=== PATIENT | male | born 1950 | race Caucasian/White ===

== ENCOUNTER 2025-04-29 13:10 | Inpatient (IN) | payer MEDICARE, OTHER ==
[~2025-04-29] VITALS: Ht 208.3 cm; Wt 77.3 kg
--- NOTE | 2025-04-29 14:24 | Physician Documentation ---
History of Present Illness General Chief Complaint: Mechanical Fall Stated Complaint: R HIP PAIN FALL ON THINNERS NO HEAD STRIKE Time Seen by MD: 14:02 Primary Medical Doctor: DR. PARIS History of Present Illness Initial Comments A 75-year-old male with PMH of bilateral DVT, chest tube placement secondary to spontaneous pneumothorax which was recurrent with a period of 8-12 months presented to the ED in view of extreme right lower extremity pain in the hip region. Patient was walking, tripped and fell over a his Od: At about 11:30 a.m. today. Patient denies presyncopal symptoms like dizziness, chest pain, palpitations, lightheadedness, sweating prior to the fall. Patient denies loss of consciousness, rhythmic contractions of the body, involuntary bowel bladder movements during her post the episode. On further evaluation in the ED, patient has a right femoral neck fracture. Dr. 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 Medication Reconciliation Allergies: Coded Allergies: amoxicillin (Verified Allergy, Intermediate, 04/29/25) Uncoded Allergies: GENTAMYACIN (Allergy, Intermediate, 03/24/17) Past Medical History Other Past Medical History: HTN DVT bilateral lower extremities Chest tube placement status post spontaneous pneumothorax-recurrent/two episodes within a period of 8-12 months Other Past Surgical History: Bilateral laparoscopic hernia repair Laparoscopic cholecystectomy Vasec Additional Comment Denies smoking cigarettes Consumes alcohol occasionally-beer once in a year No marijuana or illicit drug use Lives at home with Physical Exam Physical Exam Vital Signs: Temperature: 98.1, Source: Temporal, Heart Rate: 67, Respiratory Rate: 16, BP: 180/89, Pulse Oximetry: 100, Weight: 77.270 Oxygen Flow Rate: 0 Physical Exam General: Alert, awake, oriented, not in acute distress HEENT: PERRLA, no icterus, pallor, lymphadenopathy, carotid bruit Respiratory system: Bilateral vesicular breath sounds heard, no adventitious breath sounds CVS: S1-S2 heard, no murmurs/rubs/gallop GI: Soft, nontender, no organomegaly, no guarding/rigidity, bowel sounds present Neuro: Could not be performed as the patient is in extreme pain with right hip region Extremities: Pain and tenderness in the right hip region Skin: Warm and dry Progress Results/Orders Results/Orders Orders - ULISSES AVILEZ, RES Cbc/Diff (04/29/25 14:09) CMP (04/29/25 14:09) Chest,Single View (04/29/25 14:09) Ekg Pre Op (04/29/25 ) Completed Orders - ULISSES AVILEZ, ROSANNE Hydrocodone/Apap 5/325mg Tab ([place] 5/32 (04/29/25 14:10) Morphine 2mg/Ml Inj. (Morphine Inj.) (04/29/25 14:10) Chest,Single View (04/29/25 14:09) Medications Received in ER Medications (Trade) Dose Ordered Sig/Kim Route PRN Reason Start Time Stop Time Status Last Admin Dose Admin ([place] 5/325mg tablet) 1 tab ONCE ONCE PO 04/29/25 14:10 04/29/25 14:11 DC 04/29/25 14:49 1 TAB (morphine inj.) 2 mg ONCE ONCE IV 04/29/25 14:10 04/29/25 14:22 DC 04/29/25 14:49 2 MG Vital Signs 04/29/25 13:25 Temp 98.1 Pulse 67 Resp 16 B/P (MAP) 180/89 Pulse Ox 100 O2 Flow Rate 0 Laboratory Tests Test 04/29/25 14:33 CBC Comment Chemistry Comments Medical Decision Making Additional information obtaine: N/A Findings Right hip fracture-femoral neck Differential Diagnosis Mechanical fall, right femoral neck fracture, rule out imbalance Departure Impression: Primary Impression: Fall Qualified Codes: W19.XXXA - Unspecified fall, initial encounter Additional Impression: Fracture of femur Qualified Codes: S72.001A - Fracture of unspecified part of neck of right femur, initial encounter for closed fracture Referrals: NO PRIMARY CARE PROVIDER (PCP) Signature Scribe Signature: None Attestation: Document returned by the resident, reviewed and attested by ULISSES Cruz, ROSANNE Apr 29, 2025 14:24
--- NOTE | 2025-04-29 14:31 | RADIOLOGY REPORT ---
CHEST RADIOGRAPH Indication: pre op Technique: DI CHEST,SINGLE VIEW Comparison: None FINDINGS: The cardiac silhouette is unremarkable. The lungs demonstrate no pulmonary airspace consolidation. The pulmonary vasculature is unremarkable. There is no pleural effusion. There is no pneumothorax. Proximal left humeral bone infarct. IMPRESSION: No pulmonary airspace consolidation.
--- NOTE | 2025-04-29 14:36 | RADIOLOGY REPORT ---
Right HIP RADIOGRAPH. CLINICAL INDICATION: fall TECHNIQUE: 3 views of the right hip were obtained. FINDINGS: minimally displaced RIGHT femoral neck fracture IMPRESSION: 1. minimally displaced RIGHT femoral neck fracture
[2025-04-29] MEDS: HYDROcodone/acetaminophen 5mg/325mg tablet PO ONE (14:49)
[2025-04-29 14:55] LABS: MEAN PLATELET VOLUME 8.0 FL (7.4-10.4); RED CELL DISTRIBUTION WIDTH 13.3 % (11.5-14.5)
[2025-04-29] MEDS: normal saline 1000ml 1,000 ML IV ONE ×2 (15:08→15:12)
[2025-04-29 15:17] LABS: CREATININE 0.72 MG/DL (0.60-1.10); TOTAL CARBON DIOXIDE 30.8 MMOL/L (24-32); eCRCL 94 ML/MIN; eGFR > 90 ML/MIN
[2025-04-29] MEDS ORDERED: APIX5TAB3 PO (15:21)
[2025-04-29] MEDS ORDERED: LOVA20TA2 PO (15:21)
[2025-04-29] MEDS ORDERED: IPRA30SP BOTHNARES (15:21)
[2025-04-29] MEDS ORDERED: LISI40TA20 PO (15:21)
[2025-04-29] MEDS ORDERED: HYDROcodone/acetaminophen 5mg/325mg tablet PO PRN (15:50)
[2025-04-29] MEDS ORDERED: magnesium sulf-water 4G/100mL 100 ML IV PRN (15:50)
[2025-04-29] MEDS ORDERED: ondansetron/PF 4mg/2ml inj IV PRN (15:50)
[2025-04-29] MEDS ORDERED: bisacodyl 10mg suppository rectal RC PRN (15:50)
[2025-04-29] MEDS ORDERED: potassium Cl 40MEQ/1/2NS 520ml 520 ML IV PRN (15:50)
[2025-04-29] MEDS ORDERED: magnesium sulf-water 2g/50mL 50 ML IV PRN (15:50)
[2025-04-29] MEDS ORDERED: potassium Cl 20 mEq SR tablet PO PRN ×2 (15:50)
[2025-04-29] MEDS ORDERED: magnesium hydroxide 30ml (MOM) UD suspension PO PRN (15:50)
[2025-04-29] MEDS ORDERED: magnesium Cl slow-release 64mg tablet PO PRN (15:50)
[2025-04-29 16:14] LABS: INR 1.1 INR
[2025-04-29] MEDS: heparin, porcine 5000 units/ml vial SQ SCH (16:20)
--- NOTE | 2025-04-29 18:54 | CONSULTATION REPORT ---
History of Present Illness Providers to CC ~ Reason for Admit\Admit Dx: Right hip fracture Refering MD: Dr Paulino History of Present Illness A 75-year-old male with PMH of bilateral DVT, chest tube placement secondary to spontaneous pneumothorax which was recurrent with a period of 8-12 months presented to the ED in view of extreme right lower extremity pain in the hip region. The patient was unable to bear weight Patient was walking, tripped and fell . He denies syncopal episode. Had no complaints of hip pain prior to this fall the patient denies any prior injuries to the hip. Allergies: Coded Allergies: amoxicillin (Verified Allergy, Intermediate, 04/29/25) Uncoded Allergies: GENTAMYACIN (Allergy, Intermediate, 03/24/17) Home Medications Home Medications Active Reported Atrovent Nasal [place]* (Ipratropium [place]) 21 Mcg (0.03 %) [place] BOTH[place]ARES Mevacor* (Lovastatin) 20 Mg Tablet 1 Tab PO DAILY Lisinopril* (Lisinopril) 40 Mg Tablet 1 Tab PO DAILY Eliquis (Apixaban) 5 Mg Tablet 1 Tab PO BID Physical Exam Last Vital Signs Recorded: Temperature: 98.1, Source: Temporal, Heart Rate: 80, Respiratory Rate: 18, BP: 130/67, Pulse Oximetry: 97, Weight: 77.270 Extremities No obvious external rotation or shortening of the hip. There was some tenderness at the right groin area. The skin is intact. Pelvis is stable and nontender. The thigh knee leg and ankle are nontender and distal pulses are intact. Results Results/Orders Results/Orders X-rays showed appears to be a valgus impacted femoral neck fracture. There was some question as to whether this is acute as there appears to be some evidence of bone reaction Diagram Lab Result Diagram: 04/29/25 1433 04/29/25 1433 Assessment/Plan Problems/Diagnosis: (1) Fracture of femoral neck, right Additional Plan This will respond well to percutaneous pin fixation. This will be scheduled over the next 24 hours once the patient is medically stabilized. Thank you for this consultation. Problem Qualifiers (1) Fracture of femoral neck, right: Qualified Codes: S72.001A - Fracture of unspecified part of neck of right femur, initial encounter for closed fracture DARRELL BREWSTER Jr., MD Apr 29, 2025 18:54
[2025-04-29] MEDS: K and/or MAG REPLACEMENT MC SCH (19:51)
--- NOTE | 2025-04-29 20:20 | HISTORY AND PHYSICAL ---
History & Physical Providers to CC ~ History of Present Illness Reason for Admit\Complaint: Mechanical Fall History of Present Illness Patient is 75-year-old male with past medical history of right lower extremity DVT, hypertension, hyperlipidemia history of spontaneous pneumothorax presented to ER with his after he had mechanical fall around 11:30 a.m. today. He was checking the sensor system in his house and was walking backwards and tripped due to construction cone today. Patient is currently on Eliquis due to right lower extremity DVT. Patient denies presyncopal symptoms like dizziness, chest pain, palpitations, lightheadedness, sweating prior to the fall. Patient denies loss of consciousness, rhythmic contractions of the body, involuntary bowel bladder movements during her post the episode. As per patient this is his 1st fall and he does not have any gait imbalance issues. Patient drinks occasionally , no tobacco or use of any recreational drugs.On further evaluation in the ED, patient has a right femoral neck fracture. Dr. Leong consulted for this case and he evaluated the patient today. Hospitalist Service contacted for admission and further management . Allergies: Coded Allergies: amoxicillin (Verified Allergy, Intermediate, 04/29/25) Uncoded Allergies: GENTAMYACIN (Allergy, Intermediate, 03/24/17) Home Medications Home Medications Active Reported Atrovent Nasal [place]* (Ipratropium [place]) 21 Mcg (0.03 %) [place] BOTHNARES Mevacor* (Lovastatin) 20 Mg Tablet 1 Tab PO DAILY Lisinopril* (Lisinopril) 40 Mg Tablet 1 Tab PO DAILY Eliquis (Apixaban) 5 Mg Tablet 1 Tab PO BID Past Medical History Past Medical History HTN DVT bilateral lower extremities Chest tube placement status post spontaneous pneumothorax-recurrent/two episodes within a period of 8-12 months Past Surgical History Surgical History Comment Bilateral laparoscopic hernia repair Laparoscopic cholecystectomy Vasec Past Social History Social History Comment Denies smoking cigarettes Consumes alcohol occasionally-beer once in a year No marijuana or illicit drug use Lives at home with able to ambulate without using any assistive device ROS ROS Review of system as mentioned above in HPI rest of the review of system unremarkable Exam Vitals: Vital Signs Date Time Temp Pulse Resp B/P (MAP) Pulse Ox O2 Delivery O2 Flow Rate FiO2 04/29/25 19:18 98.1 71 16 174/96 (122) 98 0 General: General-patient not in any acute distress, alert awake oriented, age-appropriate HEENT-atraumatic normocephalic, neck supple without elevated JVD, no thyromegaly or carotid bruit. No lymphadenopathy bilaterally. Eyes-no icterus or pallor seen in eyes Chest-clear to auscultation bilaterally, breathing nonlabored no tachypnea, no wheezing, no crepitation, no crackles. Heart-S1-S2 normal, regular heart rate no murmur Abdomen bowel sounds positive on auscultation, soft nondistended nontender no guarding, no rigidity Skin no active skin rash Neurology-grossly intact, nonfocal alert awake oriented Extremity- no pedal edema able to move upper extremities, palpable pedal pulsations bilaterally.mild tenderness present on palpation over right hip Psychiatry - patient is not confused or agitated cooperated during physical examination Diagnostic Data Last Recorded Lab Results: 04/29/25 1433 04/29/25 1433 Diagnostic Data: Laboratory Tests Test 04/29/25 14:33 Prothrombin Time 11.1 SECONDS (9.0-12.0) INR International Normalized Ratio 1.1 INR Coagulation Comments Additional Plan Patient is 75-year-old male with past medical history of right lower extremity DVT, hypertension, hyperlipidemia history of spontaneous pneumothorax presented to ER with his after he had mechanical fall around 11:30 a.m. today. On further evaluation in the ED, patient has a right femoral neck fracture. Dr. Leong consulted for this case and he evaluated the patient today. He recommended percutaneous pin fixation for right hip fracture. Antihypertensive medication started for hypertension. Mildly elevated WBC count likely reactive ordered sed rate and procalcitonin. We will continue to monitor patient's labs and vitals closely . All labs, diagnostic workup, old records and ER records reviewed . Needs physical therapy evaluation before discharge . Code status discussed with the patient patient wishes full code Time spent in discussing code status 16 minutes. home medication reconciliation once updated in electronic by nursing staff or pharmacist. Further management depending on response to treatment and as per recommendation by business specialist Dr. Leong. I will continue to follow patient in a.m. Date of Service: Apr 29, 2025 Billing Provider: PALOMO ZHOU MD Common Visit Codes: 97311-[id number] INP/OBS CARE (HIGH) Secondary Visit Codes: 08831-NYGCDHBW CARE PLAN 30 MINUTES PALOMO ZHOU MD Apr 29, 2025 20:20
[2025-04-29] MEDS: HYDROcodone/acetaminophen 10/325mg tab PO PRN (23:36)
[2025-04-30] VITALS (21 sets, daily range): BP systolic 110–159; BP diastolic 64–80; PULSE 59–74; RESP 9–20; TEMP 97.6–98.6; O2SAT 95–100
[2025-04-30 06:05] LABS: MEAN PLATELET VOLUME 7.8 FL (7.4-10.4); RED CELL DISTRIBUTION WIDTH 13.1 % (11.5-14.5)
[2025-04-30 06:34] LABS: CREATININE 0.79 MG/DL (0.60-1.10); TOTAL CARBON DIOXIDE 29.7 MMOL/L (24-32); eCRCL 86 ML/MIN; eGFR > 90 ML/MIN
[2025-04-30] MEDS ORDERED: morphine 4 MG/ML inj SYRINge IV PRN (10:27)
[2025-04-30] MEDS: morphine 4 MG/ML inj SYRINge IV PRN (10:31)
--- NOTE | 2025-04-30 10:38 | ELECTROCARDIOGRAPH REPORT ---
[facility] Test Date: 2025-04-30 Test Time: 10:35:07 Pat Name: TAMMY HERNANDEZ Department: [facility] 4S Patient ID: [facility]-[id number] Room: [place] [address] A Gender: M Soda Dialyzer: MICA : [id number] Requested By: ULISSES AVILEZ Order Number: [id number] Reading MD: Dr. KALI Branham Measurements Intervals [place] Rate: 60 P: 80 CT: 141 QRS: 85 QRSD: 100 T: 52 QT: 420 QTc: 420 Interpretive Statements Sinus rhythm Borderline right axis deviation Electronically Signed On 04-30-2025 16:53:[address] KALI Branham Please click the below link to view image of tracing.
[2025-04-30] MEDS ORDERED: fentaNYL/PF 50MCG/1 ML 2ML syringe ONE ×2 (12:10→12:26)
[2025-04-30] MEDS ORDERED: propofol inj 20 ML IV ONE (12:13)
[2025-04-30] MEDS ORDERED: midazolam 1 mg/ML 2ml injection ONE (12:13)
[2025-04-30] MEDS ORDERED: ondansetron/PF 4mg/2ml inj ONE (12:26)
[2025-04-30] MEDS ORDERED: dexamethasone sod phosphate 4mg/ml inj. ONE (12:26)
[2025-04-30] MEDS: BUPIVAcaine/PF 2.5 mg/ml (0.25%) 30ml vial IJ ONE (12:26)
--- NOTE | 2025-04-30 12:49 | OPERATIVE REPORT ---
Operative Report Providers to ~ Date of Procedure: Apr 30, 2025 Pre-Operative Diagnosis: RIGHT HIP FEMORAL NECK FRACTURE Post-Operative Diagnosis SAME as PRE-Op Procedure Performed Percutaneous screw fixation right hip femoral neck fracture Surgeon: Dragan Leong MD Docent Coordinator None Anesthesiologist: Nitin Nash Type of Anesthesia: General Findings: See dictation below Prosthetics\Implants used: Laura 7.3 mm cannulated screw x3 Estimated Blood Loss: Minimal Specimen Removed: None Description of Procedure: The patient is an 75-year-old man who suffered a mechanical fall. X-rays showed a valgus impacted right femoral neck fracture. Surgery is indicated to stabilize fracture. Risks and benefits were discussed with the patient including but not limited to infection, bleeding, failure to heal, collapse and hardware pain. He agreed to proceed. He was brought to the operating room where the block was given and the general anesthetic was administered plate. He was placed on the fracture table with the legs in boot traction. Fluoro imaging showed good position of the fracture fragments. The hip and leg were prepped and draped in usual manner. A small incision was made over the lateral aspect of the hip 2 inches in length. Under fluoro guidance three threaded guide pins were advanced into the femoral head through the lateral femur. After checking position and measuring properly outer cortex was drilled and the three screws were placed. Final fluoro imaging showed good position of the fracture fragment in the hip. Irrigation was done followed by closure in layers. Sterile dressing was then applied. He was taken off the fracture table awakened and taken to the recovery room in stable condition. Counts repoted as correct: Yes DRAGAN LEONG Jr., MD Apr 30, 2025 12:49
[2025-04-30] MEDS ORDERED: fentaNYL/PF 50MCG/1 ML 2ML syringe IV PRN ×2 (13:30)
[2025-04-30] MEDS ORDERED: HYDROmorphone inj. 0.5 MG/0.5 ML DISP.SYRIN IV PRN ×2 (13:30)
[2025-04-30] MEDS ORDERED: ondansetron/PF 4mg/2ml inj IV PRN (13:30)
[2025-04-30] MEDS ORDERED: hydrALAZINE 20mg/ml inj. IV PRN (13:30)
[2025-04-30] MEDS ORDERED: labetalol 20mg/4ml (5mg/ml) syringe IV PRN (13:30)
[2025-04-30] MEDS: ringers solution, lacted 1,000 ML IV SCH (16:20)
--- NOTE | 2025-04-30 18:45 | PROGRESS NOTE ---
Daily Progress Note Providers to CC ~ Antibiotic Timeout Antibiotic Ordered?: No Subjective Patient was seen in presence of his before he left for right hip femoral surgery with Dr. Leong. Percutaneous screw fixation right hip femoral neck fracture today by customer operations specialist. Objective Vital Signs Date Time Temp Pulse Resp B/P (MAP) Pulse Ox O2 Delivery O2 Flow Rate FiO2 04/30/25 17:19 14 04/30/25 13:30 65 133/67 (89) 96 Room Air 0.0 04/30/25 12:52 99.0 Result Diagram: 04/30/25 0541 04/30/25 0541 General-patient not in any acute distress, alert awake oriented, age-appropriate HEENT-atraumatic normocephalic, neck supple without elevated JVD, no thyromegaly or carotid bruit. No lymphadenopathy bilaterally. Eyes-no icterus or pallor seen in eyes Chest-clear to auscultation bilaterally, breathing nonlabored no tachypnea, no wheezing, no crepitation, no crackles. Heart-S1-S2 normal, regular heart rate no murmur Abdomen bowel sounds positive on auscultation, soft nondistended nontender no guarding, no rigidity Skin no active skin rash Neurology-grossly intact, nonfocal alert awake oriented Extremity- no pedal edema able to move upper extremities, palpable pedal pulsations bilaterally.mild tenderness present on palpation over right hip Psychiatry - patient is not confused or agitated cooperated during physical examination Coagulation Studies Laboratory Tests Test 04/29/25 14:33 Prothrombin Time 11.1 SECONDS (9.0-12.0) INR International Normalized Ratio 1.1 INR Coagulation Comments Problem\Assessment\Plan Patient is 75-year-old male with past medical history of right lower extremity DVT, hypertension, hyperlipidemia history of spontaneous pneumothorax presented to ER with his after he had mechanical fall around 11:30 a.m. today. On further evaluation in the ED, patient has a right femoral neck fracture. # right femoral neck fracture- Dr. Leong consulted for this case and he evaluated the patient He recommended percutaneous pin fixation for right hip fracture. #hypertension- on lisinopril 40 mg at home. #Mildly elevated WBC count likely reactive - normal WBC , sed rate and procalcitonin. # Code status discussed with the patient patient wishes full code We will continue to monitor patient's labs and vitals closely . Needs physical therapy evaluation before discharge . home medication reconciliation updated in electronic records Further management depending on response to treatment and as per recommendation by food specialist Dr. Leong. I will continue to follow patient in a.m. Date of Service: Apr 30, 2025 Billing Provider: PALOMO ZHOU MD Common Visit Codes: [id number] INP/OBS CARE(HIGH) PALOMO ZHOU MD Apr 30, 2025 18:45
[2025-05-01 02:00] VITALS: BP 145/78; PULSE 60; RESP 14; TEMP 97.8; O2SAT 96
[2025-05-01 06:00] VITALS: BP 153/76; PULSE 65; RESP 15; TEMP 97.8; O2SAT 96
[2025-05-01 06:28] LABS: CREATININE 0.83 MG/DL (0.60-1.10); TOTAL CARBON DIOXIDE 30.5 MMOL/L (24-32); eCRCL 87 ML/MIN; eGFR > 90 ML/MIN
[2025-05-01 06:31] LABS: MEAN PLATELET VOLUME 8.3 FL (7.4-10.4); RED CELL DISTRIBUTION WIDTH 13.0 % (11.5-14.5)
[2025-05-01 08:00] VITALS: RESP 14; O2SAT 96
[2025-05-01 10:00] VITALS: BP 142/76; PULSE 71; RESP 16; TEMP 97.4; O2SAT 97
[2025-05-01 12:24] VITALS: RESP 16
[2025-05-01] MEDS ORDERED: HYDR-3965 PO (13:51)
[2025-05-01] MEDS ORDERED: POLY17PO10 PO (13:51)
[2025-05-01] MEDS ORDERED: ACET-1008 PO (13:53)
--- NOTE | 2025-05-01 21:17 | DISCHARGE SUMMARY ---
Discharge Summary Providers to CC ~ Discharge Summary Admission Diagnosis: RIGHT HIP FEMORAL NECK FRACTURE Hospital Course DATE OF ADMISSION: 04/29/25 DATE OF DISCHARGE: 05/01/25 CBC testing done on May 01, 2025 WBC 12.2 hemoglobin 14.0 hematocrit 41.1 sed rate 2, procalcitonin 0.05 CMP done on May 01, 2025 sodium 138 potassium 4.3 creatinine 0.83 GFR greater than 90. CHEST,SINGLE VIEWIMPRESSION: No pulmonary airspace consolidation. HIP UNILATERAL 2-3 VIEWSIMPRESSION: 1. minimally displaced RIGHT femoral neck fracture Discharge Diagnosis\Comment: right femoral neck fractur, right lower extremity DVT, hypertension, hyperlipidemia history of spontaneous pneumothorax Operations\Procedures: percutaneous pin fixation for right hip fracture. Consultants: Dr. Leong Complications: None Condition on DC: Stable New Medications: Hydrocodone Bit/Acetaminophen 5/325 MG ([place] 5/325 MG) 5 Mg/325 Mg Tablet 1 TAB PO Q8H PRN for moderate or severe pain 4-10 for 7 Days, #20 TAB Polyethylene Glycol 3350* (Miralax*) 1 Packet Packet 1 PACKET PO HS for 10 Days, #10 PACKET Changed Medications: Acetaminophen (Tylenol) 325 Mg Tablet 1 TAB PO Q8H PRN for mild pain 1-3 for 7 Days, #20 TAB (Changed from: QDAY PRN; 30; 30) Continued Medications: Apixaban (Eliquis) 5 Mg Tablet 1 TAB PO BID Ipratropium [place] Nasal [place]* (Atrovent Nasal [place]*) 21 Mcg (0.03 %) [place] BOTHNARES Lisinopril* (Lisinopril*) 40 Mg Tablet 1 TAB PO DAILY Lovastatin* (Mevacor*) 20 Mg Tablet 1 TAB PO DAILY Discharge Summary: Patient is 75-year-old male with past medical history of right lower extremity DVT, hypertension, hyperlipidemia history of spontaneous pneumothorax presented to ER with his after he had mechanical fall around 11:30 a.m. today. On further evaluation in the ED, patient has a right femoral neck fracture. # right femoral neck fracture- Dr. Leong consulted for this case and he evaluated the patient He recommended percutaneous pin fixation for right hip f racture. #hypertension- on lisinopril 40 mg at home. #Mildly elevated WBC count likely reactive - normal WBC , sed rate and procalcitonin. # Code status discussed with the patient patient wishes full code Patient is feeling better , he has been afebrile and getting discharged home in stable condition. Patient is seen and examined on the day of discharge. All labs, diagnostic workup and discharge plan discussed with patient and family members in detail before her discharge. All questions and queries answered to the best of my professional medical knowledge. I heard patient's concerns and address appropriately. Patient was cleared by Physical therapy team for home discharge with the assist. Dr. Salo martinez to discharge the patient today. auto care center manager involved in patient's discharge plan. Discharge instructions provided to the patient. FOLLOW WITH DR. LEONG IN 4 WEEKS AND CONTACT HIS OFFICE FOR APPOINTMENT. FULL WEIGHT-BEARING RECOMMENDED BY UNIVERSITY SERVICES PROGRAM ASSOCIATE. CONTINUE ELIQUIS IN CURRENT DOSE. PLEASE PROVIDE FALL PRECAUTIONS DOCUMENT, ACTIVITY TOLERATED General-patient not in any acute distress, alert awake oriented, age-appropriate HEENT-atraumatic normocephalic, neck supple without elevated JVD, no thyromegaly or carotid bruit. No lymphadenopathy bilaterally. Eyes-no icterus or pallor seen in eyes Chest-clear to auscultation bilaterally, breathing nonlabored no tachypnea, no wheezing, no crepitation, no crackles. Heart-S1-S2 normal, regular heart rate no murmur Abdomen bowel sounds positive on auscultation, soft nondistended nontender no guarding, no rigidity Skin no active skin rash Neurology-grossly intact, nonfocal alert awake oriented Extremity- no pedal edema able to move upper extremities, palpable pedal p ulsations bilaterally.mild tenderness present on palpation over right hip Psychiatry - patient is not confused or agitated cooperated during physical examination *Problems/Diagnosis: (1) Fracture of femoral neck, right Total Time Spent on D/C: > 30 Minutes Date of Service: May 01, 2025 Billing Provider: PALOMO ZHOU MD Common Visit Codes: 13682-ZSW/OBS DISCH DAY >30min Problem Qualifiers (1) Fracture of femoral neck, right: Qualified Codes: S72.001A - Fracture of unspecified part of neck of right femur, initial encounter for closed fracture PALOMO ZHOU MD May 01, 2025 21:17
== END 2025-05-01 15:10 | disposition home or self-care (01) | DRG 481 ==
LOC: ER 13:10 → ED HOLD 15:53 → ORTHO 4S 20:50
PROVIDERS: ADMIT Internal Medicine; ATTEND Internal Medicine
PROC: 0QS634Z Reposition Right Upper Femur with Internal Fixation Device, Percutaneous Approach (ICD-10-PCS; principal; 2025-04-30 12:04)
DX: S72.001A Fracture of unspecified part of neck of right femur, initial encounter for closed fracture (principal); E44.0 Moderate protein-calorie malnutrition; Z79.01 Long term (current) use of anticoagulants; I10 Essential (primary) hypertension; Z68.1 Body mass index [BMI] 19.9 or less, adult; D72.829 Elevated white blood cell count, unspecified; W18.39XA Other fall on same level, initial encounter; E78.5 Hyperlipidemia, unspecified; Y93.89 Activity, other specified; Y92.89 Other specified places as the place of occurrence of the external cause; Y99.8 Other external cause status; Z88.0 Allergy status to penicillin; Z90.49 Acquired absence of other specified parts of digestive tract; Z86.718 Personal history of other venous thrombosis and embolism
CPT/HCPCS: 36415; 71045; 73501; 73502; 76000; 80053; 82948; 84145; 85025; 85610; 85651; 87081; 93005; 96361; 96374; 96376; 97116; 97161; 97530; 99285; A4618; A7000; C1713; C1769; G0378; J0690; J1100; J1644; J2250; J2270; J2405; J2704; J3010; J3490; J7030; J7120